=== PATIENT | male | born 1950 | race Caucasian/White ===

== ENCOUNTER → 2019-01-12 | Outpatient (CLI) | payer MEDICARE ==
--- NOTE | 2019-01-12 16:52 | Diagnostic Imaging Report ---
PATIENT HISTORY: PERSISTENT COUGH. TECHNIQUE: Two views of the chest. COMPARISON: None. FINDINGS: There are small bilateral pleural effusions, right greater than left, with associated airspace opacities. No pneumothorax is seen. The right-sided pacemaker leads appear to be in expected position. There is calcific atherosclerosis in the aorta. There are calcified left hilar lymph nodes as well as a calcified granuloma in the left lung. The heart is normal in size. No acute osseous abnormality is seen. IMPRESSION: 1. Small bilateral pleural effusions, right greater than left, with associated bibasilar airspace opacities, likely atelectasis. Dictated by: Dictated on workstation # [id number]
== END ==
LOC: RAD FS 16:35
PROVIDERS: ATTEND Nurse Practitioner
DX: J90 Pleural effusion, not elsewhere classified (principal)
CPT/HCPCS: 71046

== ENCOUNTER 2019-11-15 10:09 | Emergency (ER) | payer MEDICARE, OTHER ==
[~2019-11-15] VITALS: Ht 187.9 cm; Wt 113.6 kg
[2019-11-15] MEDS ORDERED: NEOM28.33 TP (10:49)
--- NOTE | 2019-11-15 10:50 | ED Integumentary General ---
General Chief Complaint: Skin/Wound Problems Stated Complaint: FALL Nursing Triage Note: Patient reports he tripped over some boxes this morning and fell backward against the television, scraping his right arm and causing extensive skin tears on his right bicep and a small skin tear on his right forearm. History of Present Illness Date Seen by Provider: Nov 15, 2019 Time Seen by Provider: 10:45 Initial Comments 69 yo male multiple chronic illnesses ESRD hemo followed for foot ulcer says has unsteady gait was looking out window, started to lean back, stepped back and tripped over boxes, fell causing skin tears to right upper arm as described above denies any other injury or concern Allergies and Home Medications Allergies Coded Allergies: No Known Drug Allergies (Unverified , 11/15/19) Home Medications Neomycin Rodríguez/Bacitrac Zn/Poly 28.3 Gm Oint...g., 28.3 GM TP DAILY Prescribed by: JEAN MAZARIEGOS on 11/15/19 1049 Patient Home Medication List Home Medication List Reviewed: Yes Review of Systems Review of Systems Constitutional: no symptoms reported EENTM: no symptoms reported Cardiovascular: no symptoms reported Gastrointestinal: no symptoms reported Genitourinary: no symptoms reported Musculoskeletal: other (abrasions skin tears right arm) Past Jaogzeo-Lanrfb-Tgesdt Hx Patient Social History Recent Foreign Travel: No Contact w/Someone Who Travel: No Recent Infectious Disease Expo: No Physical Exam Vital Signs Vital Signs - First Documented 11/15/19 10:28 Temp 36.5 Pulse 70 Resp 16 B/P (MAP) 124/94 (104) Pulse Ox 98 O2 Delivery Room Air Capillary Refill : Less Than 3 Seconds General Appearance: WD/WN, no apparent distress HEENT: PERRL/EOMI Neck: supple Cardiovascular: regular rate, rhythm Respiratory: lungs clear Gastrointestinal: non tender Extremities: other (has 10 x 10 cm skin tear right upper minor skin tear forearm ortho exam of RUE no suspicion of fx has FROM without pain etc) Procedures/Interventions nurse cleansed skin tears skin placed back in anatomic position neosporin non-stick dressing and wrap Progress/Results/Core Measures Results/Orders My Orders Orders - JEAN MAZARIEGOS MD Wound Dressing-Ed (11/15/19 10:29) Santos/Poly/Gina Topical Ointment (Neosporin (11/15/19 21:00) Vital Signs/I&O 11/15/19 11/15/19 10:28 11:18 Temp 36.5 Pulse 70 74 Resp 16 16 B/P (MAP) 124/94 (104) 138/89 Pulse Ox 98 94 O2 Delivery Room Air Room Air Blood Pressure Mean: 104 Departure Impression Primary Impression: Skin tear Disposition: HOME, SELF-CARE Condition: Stable Departure-Patient Inst. Decision time for Depature: 10:47 Referrals: KAMAR HAZELP-STILL WORKER HELPER (PCP) Primary Care Physician NO,LOCAL PHYSICIAN (Family) Primary Care Physician Patient Instructions: Skin Abrasions (DC) Add. Discharge Instructions: each day clean wound with soap and water pat dry, then apply antibiotic ointment non-stick dressing and a wrap Scripts Neomycin Rodríguez/Bacitrac Zn/Poly (Neosporin Ointment) 28.3 Gm Oint...g. 28.3 GM TP DAILY for 10 Days, #1 TUBE Prov: JEAN MAZARIEGOS MD 11/15/19 JEAN MAZARIEGOS MD Nov 15, 2019 10:50
[2019-11-15 11:18] VITALS: BP 138/89
[2019-11-15] MEDS ORDERED: NEO/POLY/BAC (NEOSPORIN) OINT 15 GM TUBE TOP SCH (21:00)
== END 2019-11-15 11:19 | disposition home or self-care (01) ==
LOC: EDUNIT# 10:09 → ER FS 10:10
DX: S51.811A Laceration without foreign body of right forearm, initial encounter (principal); S41.111A Laceration without foreign body of right upper arm, initial encounter; W01.0XXA Fall on same level from slipping, tripping and stumbling without subsequent striking against object, initial encounter
CPT/HCPCS: 99282

== ENCOUNTER 2020-07-28 18:02 | Emergency (ER) | payer OTHER ==
[~2020-07-28] VITALS: Ht 187.9 cm; Wt 113.6 kg
[~2020-07-28 18:02] MED LIST: NEOM28.33 TP
[2020-07-28] MEDS ORDERED: ONDANSETRON 4 MG/2 ML (SDV) Z0FRAN IVP ONE (18:30)
[2020-07-28] MEDS ORDERED: NS (IVPB) 250 ML IV ONE (18:49)
[2020-07-28] MEDS ORDERED: ACETAMINOPHEN 500 MG TAB (TYLENOL) PO ONE (19:00)
[2020-07-28 19:02] LABS: HEMATOCRIT 34 % (40-54); HEMOGLOBIN 11.1 G/DL (13.3-17.7); MEAN CORPUSCULAR HEMOGLOBIN 32 PG (25-34); MEAN CORPUSCULAR HGB CONC 32 G/DL (32-36); MEAN CORPUSCULAR VOLUME 98 FL (80-99); MEAN PLATELET VOLUME 10.2 FL (7.4-10.4); PLATELET COUNT 167 10^3/uL (130-400)
[2020-07-28 19:04] LABS: BASOPHILS # (AUTO) 0.1 10^3/uL (0.0-0.1); BASOPHILS % (AUTO) 1 % (0-10); EOSINOPHILS # (AUTO) 0.1 10^3/uL (0.0-0.3); EOSINOPHILS % (AUTO) 3 % (0-10); LYMPHOCYTES % (AUTO) 20 % (12-44); MONOCYTES # (AUTO) 0.8 X 10^3 (0.0-1.0); MONOCYTES % (AUTO) 16 % (0-12); NEUTROPHILS % (AUTO) 60 % (42-75)
--- NOTE | 2020-07-28 19:21 | ED GI ---
General Chief Complaint: Abdominal/GI Problems Stated Complaint: VOMITING,DIARRHEA,ALL OVER BODY PAIN Nursing Triage Note: Patient presents to the ED with c/o nausas, vomiting, weakness, and right arm swelling. He reports that he has had diarrhea and vomiting since Tuesday. He states he had dialysis today and his nausea became worse and he feels weak. He also reports that his right arm is swollen too. Sepsis Screen: No Definite Risk History of Present Illness Date Seen by Provider: Jul 28, 2020 Time Seen by Provider: 18:25 Initial Comments The patient is a 70-year-old male with a somewhat unclear medical history as he is a challenging historian and we do not have any prior history on him at this facility. At minimum, he does have a history of hypertension, hyperlipidemia, questionable coronary artery disease and heart failure (patient does not know), pacemaker in place, on warfarin for an unclear indication, insulin-dependent diabetes, end-stage renal disease on hemodialysis MWF and compliant. Last dialysis today. Patient presents for evaluation of 3 days of copious nonbloody vomiting and diarrhea. Patient states he has had about 10 episodes of watery loose stool each day over the past 3 days. He states he's had about 5 episodes of nonbloody vomiting each day over that interval. He reports feeling very generally weak and tired and states he has not been able to hold down any food or fluids. He denies associated fevers, hematemesis, hematochezia, melena, upper respiratory congestion/rhinorrhea, cough, shortness of breath or chest pain of any kind, focal abdominal pain of any kind (he admits to generalized abdominal cramping when his diarrhea is worse), flank pain, back pain, dysuria or hematuria (he still makes a little urine), recent unusual travel, unusual foods, sick contacts with similar symptoms, recent antibiotic use. Ervin has a secondary concern of minimal swelling of his right hand and wrist, atraumatic and without any associated pain, over the past few days. This is not bothering him very much but he states he wanted to mention it. He has not had this happen before. Patient is alert and pleasantly and appropriately interactive and in absolutely no acute distress upon initial assessment here in the emergency department. He moves all extremities equally. Vital signs are appropriate here. Allergies and Home Medications Allergies Coded Allergies: No Known Drug Allergies (Unverified , 11/15/19) Home Medications Neomycin Rodríguez/Bacitrac Zn/Poly 28.3 Gm Oint...g., 28.3 GM TP DAILY Prescribed by: JEAN MAZARIEGOS on 11/15/19 1049 Patient Home Medication List Home Medication List Reviewed: Yes Review of Systems Review of Systems Constitutional: see HPI All Other Systems Reviewed Negative Unless Noted: Yes (Negative excepted noted.) Past Njdiihd-Cgmlou-Fkhjkr Hx Past Med/Social Hx: Reviewed Nursing Past Med/Soc Hx Patient Social History Alcohol Use: Denies Use Recreational Drug Use: No Smoking Status: Never a Smoker 2nd Hand Smoke Exposure: No Recent Foreign Travel: No Contact w/Someone Who Travel: No Recent Infectious Disease Expo: No Recent Hopitalizations: No Physical Abuse: No Sexual Abuse: No Mistreated: No Fear: No Seasonal Allergies Seasonal Allergies: No Past Medical History Surgeries: Yes Pacemaker Respiratory: No Cardiac: No Neurological: No Genitourinary: Yes Dialysis Gastrointestinal: No Musculoskeletal: Yes (toes on right foot amputated) Amputee Endocrine: Yes Diabetes, Non-Insulin dep HEENT: No Cancer: No Psychosocial: No Integumentary: No Family Medical History Reviewed Nursing Family Hx Physical Exam Vital Signs Vital Signs - First Documented 07/28/20 18:05 Temp 36.7 Pulse 84 Resp 16 B/P (MAP) 145/75 (98) Pulse Ox 94 O2 Delivery Room Air Capillary Refill : Less Than 3 Seconds Height/Weight/BMI Height: '" Weight: lbs. oz. kg; 32.00 BMI Method: General Appearance: no apparent distress Exam Comments This is an elderly male appearing nontoxic and in no acute distress. Head is normocephalic and atraumatic. Neck is supple and nontender. Oropharynx is tacky. Lungs are clear to auscultation at all stations. There is a normal S1 and S2 without rubs or gallops and capillary refill is appropriate, less than 2 seconds globally. Abdomen is soft, nontender and nondistended. Skin is warm and dry without cyanosis, clubbing or edema. Psychiatrically, the patient demonstrates appropriate mood and affect and is alert. Neurologically, patient moves all extremities equally, is alert and oriented and no lateralizing deficits are grossly noted. Examination of the extremities reveals very mild swelling to the right hand without erythema and without tenderness. No discomfort with ranging of any joints of the bilateral upper or lower extremities. Bilateral upper and lower extremity is neurovascularly intact distally with strength 5 out of 5, sensation intact to light touch in all nerve distributions, peripheral pulses 2+, capillary refill less than 2 seconds, hands and feet warm and well-perfused. Focused Exam Lactate Level 07/28/20 18:58: Lactic Acid Level 1.51 Lactic Acid Level Laboratory Tests Test 07/28/20 18:58 Lactic Acid Level 1.51 MMOL/L (0.50-2.00) Progress/Results/Core Measures Results/Orders Lab Results Laboratory Tests Test 07/28/20 18:15 07/28/20 18:58 Range/Units White Blood Count 5.0 4.3-11.0 10^3/uL Red Blood Count 3.51 L 4.35-5.85 10^6/uL Hemoglobin 11.1 L 13.3-17.7 G/DL Hematocrit 34 L 40-54 % Mean Corpuscular Volume 98 80-99 FL Mean Corpuscular Hemoglobin 32 25-34 PG Mean Corpuscular Hemoglobin Concent 32 32-36 G/DL Red Cell Distribution Width 14.3 10.0-14.5 % Platelet Count 167 130-400 10^3/uL Mean Platelet Volume 10.2 7.4-10.4 FL Neutrophils (%) (Auto) 60 42-75 % Lymphocytes (%) (Auto) 20 12-44 % Monocytes (%) (Auto) 16 H 0-12 % Eosinophils (%) (Auto) 3 0-10 % Basophils (%) (Auto) 1 0-10 % Neutrophils # (Auto) 3.0 1.8-7.8 X 10^3 Lymphocytes # (Auto) 1.0 1.0-4.0 X 10^3 Monocytes # (Auto) 0.8 0.0-1.0 X 10^3 Eosinophils # (Auto) 0.1 0.0-0.3 10^3/uL Basophils # (Auto) 0.1 0.0-0.1 10^3/uL Prothrombin Time 15.6 H 12.2-14.7 SEC INR Comment 1.2 0.8-1.4 Activated Partial Thromboplast Time 36 H 24-35 SEC Sodium Level 137 135-145 MMOL/L Potassium Level 3.3 L 3.6-5.0 MMOL/L Chloride Level 91 L 98-107 MMOL/L Carbon Dioxide Level 34 H 21-32 MMOL/L Anion Gap 12 5-14 MMOL/L Blood Urea Nitrogen 12 7-18 MG/DL Creatinine 3.33 H 0.60-1.30 MG/DL Estimat Glomerular Filtration Rate 18 BUN/Creatinine Ratio 4 Glucose Level 140 H 70-105 MG/DL Calcium Level 7.9 L 8.5-10.1 MG/DL Corrected Calcium 8.4 L 8.5-10.1 MG/DL Magnesium Level 1.9 1.6-2.4 MG/DL Total Bilirubin 1.0 0.1-1.0 MG/DL Aspartate Amino Transf (AST/SGOT) 17 5-34 U/L Alanine Aminotransferase (ALT/SGPT) 5 0-55 U/L Alkaline Phosphatase 254 H 40-136 U/L Troponin I < 0.30 <0.30 NG/ML Total Protein 7.8 6.4-8.2 GM/DL Albumin 3.4 3.2-4.5 GM/DL Lipase 10 8-78 U/L Lactic Acid Level 1.51 0.50-2.00 MMOL/L My Orders Orders - KIP WOOD MD Ondansetron Injection (Zofran Injectio (07/28/20 18:30) Cbc With Automated Diff (07/28/20 18:49) Comprehensive Metabolic Panel (07/28/20 18:49) Lipase (07/28/20 18:49) Lactic Acid Analyzer (07/28/20 18:49) Troponin I Fs (07/28/20 18:49) Ekg Tracing (07/28/20 18:49) Magnesium (07/28/20 18:49) Ed Iv/Invasive Line Start (07/28/20 18:49) Ns (Ivpb) (Sodium Chloride 0.9%) (07/28/20 18:49) Acetaminophen Tablet (Tylenol Tablet) (07/28/20 19:00) Protime With Inr (07/28/20 19:22) Partial Thromboplastin Time (07/28/20 19:22) Ceftriaxone For Iv Use (Rocephin For I (07/28/20 20:00) Ct Abdomen/Pelvis Wo (07/28/20 20:37) Medications Given in ED Current Medications Medications Dose Ordered Sig/Jose Alejandro Route Start Time Stop Time Status Last Admin Dose Admin Acetaminophen 1,000 mg ONCE ONCE PO 07/28/20 19:00 07/28/20 19:01 DC 07/28/20 18:59 1,000 MG Ondansetron HCl 4 mg ONCE ONCE IVP 07/28/20 18:30 07/28/20 18:31 DC 07/28/20 18:36 4 MG Sodium Chloride 250 ml @ 0 mls/hr Q0M ONCE IV 07/28/20 18:49 07/28/20 18:52 DC 07/28/20 18:59 0 MLS/HR Vital Signs/I&O 07/28/20 07/28/20 18:05 20:13 Temp 36.7 Pulse 84 69 Resp 16 16 B/P (MAP) 145/75 (98) 124/56 (78) Pulse Ox 94 97 O2 Delivery Room Air Room Air Blood Pressure Mean: 98 Progress Progress Note : Time: 20:06 Progress Note Elderly diabetic male with end-stage renal disease, compliant with dialysis, who presents with several days of intractable vomiting and diarrhea. Has not been able to hold down food or fluids at home. We'll check labs and EKG and give a small crystalloid bolus and some antinausea medication and will then reevaluate. Anticipate the need for admission, which will need to be at the [facility] in [place] as the patient's insurance mandates that. 2000: Patient is resting comfortably in no acute distress upon reassessment. No huge derangements in counts or chemistries are seen. EKG with a nonischemic paced rhythm. Patient has received a small fluid bolus and states he is feeling better. Given his baseline very fragile health and intractable vomiting and diarrhea, will require admission. We'll transfer to the [facility] per his insurance. Suggest that venous Doppler ultrasound of the right upper extremity be completed at the receiving facility to evaluate for VTE. Suggest that stool studies be obtained at the receiving facility as well (we do not have the ability to process stool studies here at this freestanding facility). Graciously accepted i n transfer to [facility] for admission by Dr. Scott, who also requests noncontrast CT A/P be completed prior to transfer. This was done and is unremarkable aside from RUQ findings (no RUQ TTP and no LFT derangements) and ascites, likely due to ESRD status. Comment Ventricularly paced, irregular rhythm, rate 70s, no acute ST elevation or depression, EP interp Diagnostic Imaging Comments Date of Exam:07/28/20 CT ABDOMEN/PELVIS WO PROCEDURE: CT abdomen and pelvis without contrast, 07/28/2020. TECHNIQUE: Multiple contiguous axial images were obtained through the abdomen and pelvis without the use of intravenous contrast. Auto Exposure Controls were utilized during the CT exam to meet ALARA standards for radiation dose reduction. INDICATION: Nausea, vomiting, renal failure. COMPARISON: None. FINDINGS: Calcified granuloma seen in the visualized lung bases. There is a rounded density in the posterior right lung base perhaps rounded atelectasis. Follow-up recommended to assure complete resolution and exclude mass. More patchy atelectasis seen at the left lung base. There are small bilateral pleural effusions. Calcified lymph nodes seen throughout the mediastinum and left hilum. Within the abdomen and pelvis there is moderate ascites. The unopacified abdominal viscera limited in evaluation. Evidence of old granulomatous disease throughout the spleen and portions of the liver. There are multiple hyperdensities within the gallbladder. Acute cholecystitis is not excluded. Pancreas is unremarkable. Adrenal glands normal. Kidneys markedly atrophied. Diffuse atherosclerotic disease is seen. There is wall thickening of the urinary bladder likely due to under distention versus cystitis, correlate clinically. There is no acute osseous abnormality with diffuse degenerative disease throughout the spine. IMPRESSION: 1. Moderate ascites. 2. Abnormality within the gallbladder, likely multiple stones. If there is concern for acute cholecystitis, sonography could better characterize as clinically indicated. 3. Other incidental findings as above. Dictated on workstation # [id number] Departure Impression Primary Impression: Acute infectious diarrhea Additional Impression: Intractable vomiting Qualified Codes: R11.2 - Nausea with vomiting, unspecified Disposition: XFER SHT-TRM HOSP Condition: Stable Transfer Transfer Progress Notes Pt must transfer to [facility] as that is where he gets his care, and he [place]. Departure-Patient Inst. Referrals: KAMAR HAZEL-RECRUITING SCHEDULER (PCP) Primary Care Physician NO,LOCAL PHYSICIAN (Family) Primary Care Physician KIP WOOD MD Jul 28, 2020 19:21
[2020-07-28 19:22] LABS: CARBON DIOXIDE 34 MMOL/L (21-32); CHLORIDE 91 MMOL/L (98-107); POTASSIUM 3.3 MMOL/L (3.6-5.0); SODIUM 137 MMOL/L (135-145)
[2020-07-28 19:23] LABS: ALANINE AMINOTRANSFERASE 5 U/L (0-55); ALBUMIN 3.4 GM/DL (3.2-4.5); ALKALINE PHOSPHATASE 254 U/L (40-136); BUN/CREATININE RATIO 4; CALCIUM 7.9 MG/DL (8.5-10.1); CREATININE SERUM 3.33 MG/DL (0.60-1.30); GFR ESTIMATED 18; GLUCOSE 140 MG/DL (70-105); LIPASE 10 U/L (8-78); MAGNESIUM 1.9 MG/DL (1.6-2.4); TOTAL PROTEIN 7.8 GM/DL (6.4-8.2)
[2020-07-28 19:39] LABS: INR 1.2 (0.8-1.4); PROTHROMBIN TIME PATIENT 15.6 SEC (12.2-14.7)
[2020-07-28] MEDS ORDERED: cefTRIAXone FOR IV USE 1,000 MG in WATER (STERILE) FOR INJECTION 10 ML IV ONE (20:00)
[2020-07-28 20:13] VITALS: BP 124/56
--- NOTE | 2020-07-28 21:32 | Diagnostic Imaging Report ---
PROCEDURE: CT abdomen and pelvis without contrast, 07/28/2020. TECHNIQUE: Multiple contiguous axial images were obtained through the abdomen and pelvis without the use of intravenous contrast. Auto Exposure Controls were utilized during the CT exam to meet ALARA standards for radiation dose reduction. INDICATION: Nausea, vomiting, renal failure. COMPARISON: None. FINDINGS: Calcified granuloma seen in the visualized lung bases. There is a rounded density in the posterior right lung base perhaps rounded atelectasis. Follow-up recommended to assure complete resolution and exclude mass. More patchy atelectasis seen at the left lung base. There are small bilateral pleural effusions. Calcified lymph nodes seen throughout the mediastinum and left hilum. Within the abdomen and pelvis there is moderate ascites. The unopacified abdominal viscera limited in evaluation. Evidence of old granulomatous disease throughout the spleen and portions of the liver. There are multiple hyperdensities within the gallbladder. Acute cholecystitis is not excluded. Pancreas is unremarkable. Adrenal glands normal. Kidneys markedly atrophied. Diffuse atherosclerotic disease is seen. There is wall thickening of the urinary bladder likely due to under distention versus cystitis, correlate clinically. There is no acute osseous abnormality with diffuse degenerative disease throughout the spine. IMPRESSION: 1. Moderate ascites. 2. Abnormality within the gallbladder, likely multiple stones. If there is concern for acute cholecystitis, sonography could better characterize as clinically indicated. 3. Other incidental findings as above. Dictated by: Dictated on workstation # [id number]
[2020-07-28 21:45] VITALS: BP 138/76
== END 2020-07-28 22:03 | disposition short-term general hospital (02) ==
LOC: EDUNIT# 18:02 → ER FS 18:04
DX: A09 Infectious gastroenteritis and colitis, unspecified (principal); R11.10 Vomiting, unspecified; Z95.0 Presence of cardiac pacemaker; Z89.421 Acquired absence of other right toe(s)
CPT/HCPCS: 36415; 74176; 80053; 83605; 83690; 83735; 84484; 85025; 85610; 85730; 93005

== ENCOUNTER 2020-09-04 17:21 | Emergency (ER) | payer MEDICARE, OTHER ==
[~2020-09-04] VITALS: Ht 185 cm; Wt 113.0 kg
[2020-09-04 17:53] LABS: HEMATOCRIT 31 % (40-54); HEMOGLOBIN 10.4 G/DL (13.3-17.7); MEAN CORPUSCULAR HEMOGLOBIN 32 PG (25-34); MEAN CORPUSCULAR HGB CONC 33 G/DL (32-36); MEAN CORPUSCULAR VOLUME 95 FL (80-99); MEAN PLATELET VOLUME 9.9 FL (7.4-10.4); PLATELET COUNT 198 10^3/uL (130-400); WHITE BLOOD COUNT 5.1 10^3/uL (4.3-11.0)
[2020-09-04 17:54] LABS: BASOPHILS # (AUTO) 0.1 10^3/uL (0.0-0.1); BASOPHILS % (AUTO) 1 % (0-10); EOSINOPHILS # (AUTO) 0.2 10^3/uL (0.0-0.3); EOSINOPHILS % (AUTO) 4 % (0-10); LYMPHOCYTES # (AUTO) 0.9 X 10^3 (1.0-4.0); LYMPHOCYTES % (AUTO) 18 % (12-44); MONOCYTES % (AUTO) 20 % (0-12); NEUTROPHILS # (AUTO) 2.9 X 10^3 (1.8-7.8); NEUTROPHILS % (AUTO) 57 % (42-75)
--- NOTE | 2020-09-04 17:58 | ED Upper Extremity ---
General Chief Complaint: Upper Extremity Stated Complaint: RT ARM SWELLING Nursing Triage Note: ARRIVED VIA AMB TO ROOM 06 WITH COMPLAINTS OF RIGHT ARM SWELLING SINCE Jul WHEN A IV WAS PLACED HERE ACCORDING TO HIM. STATES IT IS NOT GETTING BETTER AND WAS TOLD BY HIS HOME HEALTH NURSE TO COME TO THE ER. PT IS ON DIALYSIS AND IS SCHEDULED ON . Nursing Sepsis Screen: No Definite Risk History of Present Illness Date Seen by Provider: Sep 04, 2020 Time Seen by Provider: 17:45 Initial Comments 70-year-old male presents with right forearm swelling for the past 1 month. States it started after an IV was started in his right forearm. Developed shortly thereafter, was noted during that subsequent hospitalization. Today was told by home health nurse he needed to go to the ER. Patient denies any increased pain or skin color changes. States the swelling just hasn't gone away. Denies any numbness or tingling or weakness of any extremity. Denies any swelling of his arm on the same side. Denies any recent illness, fever chills, cough or shortness of air. Denies any chest pain. Past medical history significant for chronic kidney disease and is on dialysis Tuesday and Tuesday. His shunt is located in his left forearm. He does not have any new swelling of the left upper or lower extremities. Patient is on a blood thinner Allergies and Home Medications Allergies Coded Allergies: No Known Drug Allergies (Unverified , 11/15/19) Home Medications Neomycin Rodríguez/Bacitrac Zn/Poly 28.3 Gm Oint...g., 28.3 GM TP DAILY Prescribed by: JEAN MAZARIEGOS on 11/15/19 1049 Patient Home Medication List Home Medication List Reviewed: Yes Review of Systems Constitutional: No dizziness, No fever, No malaise, No weakness Respiratory: No cough, No short of breath, No stridor, No wheezing Cardiovascular: No chest pain; edema (chronic lower extremity edema and swelling of the right forearm as stated in history of present illness); No syncope Gastrointestinal: No abdominal pain, No nausea, No vomiting Musculoskeletal: No back pain, No joint pain, No joint swelling Skin: No lesions; other (swelling of right forearm) Past Fjdwadh-Wzdxkr-Lvszck Hx Past Med/Social Hx: Reviewed Nursing Past Med/Soc Hx Patient Social History Alcohol Use: Occasionally Uses Recreational Drug Use: No Smoking Status: Never a Smoker 2nd Hand Smoke Exposure: No Recent Foreign Travel: No Contact w/Someone Who Travel: No Recent Infectious Disease Expo: No Recent Hopitalizations: No Seasonal Allergies Seasonal Allergies: No Past Medical History Surgeries: Yes Pacemaker Respiratory: No Cardiac: No Neurological: No Genitourinary: Yes Dialysis Gastrointestinal: No Musculoskeletal: Yes (toes on right foot amputated) Amputee Endocrine: Yes Diabetes, Non-Insulin dep HEENT: No Cancer: No Psychosocial: No Integumentary: No Physical Exam Vital Signs Vital Signs - First Documented 09/04/20 17:25 Temp 37.0 Pulse 72 Resp 16 B/P (MAP) 156/77 (103) Pulse Ox 97 O2 Delivery Room Air Capillary Refill : Less Than 3 Seconds Height, Weight, BMI Height: '" Weight: lbs. oz. kg; 33.00 BMI Method: General Appearance: WD/WN, no apparent distress Neck: non-tender, full range of motion Cardiovascular: regular rate, rhythm, no gallop, no JVD, no murmur, other (chronic lower extremity edema) Respiratory: chest non-tender, lungs clear, normal breath sounds, no respiratory distress, no accessory muscle use Gastrointestinal: non tender, soft Elbow/Forearm: no evidence of injury, normal ROM, Right, swelling (moderate swelling right forearm, dorsum. Extensor muscle bundle. No swelling of full or her Flexeril muscle bundle.) Wrist: Yes normal inspection, Yes non-tender, Yes no evidence of injury, Yes normal ROM Hand: normal inspection, non-tender, no evidence of injury, normal ROM, Right Neurologic/Psychiatric: no motor/sensory deficits, alert, normal mood/affect Skin: normal color, warm/dry Progress/Results/Core Measures Results/Orders Lab Results Laboratory Tests Test 09/04/20 17:40 Range/Units White Blood Count 5.1 4.3-11.0 10^3/uL Red Blood Count 3.30 L 4.35-5.85 10^6/uL Hemoglobin 10.4 L 13.3-17.7 G/DL Hematocrit 31 L 40-54 % Mean Corpuscular Volume 95 80-99 FL Mean Corpuscular Hemoglobin 32 25-34 PG Mean Corpuscular Hemoglobin Concent 33 32-36 G/DL Red Cell Distribution Width 14.1 10.0-14.5 % Platelet Count 198 130-400 10^3/uL Mean Platelet Volume 9.9 7.4-10.4 FL Immature Granulocyte % (Auto) 0 % Neutrophils (%) (Auto) 57 42-75 % Lymphocytes (%) (Auto) 18 12-44 % Monocytes (%) (Auto) 20 H 0-12 % Eosinophils (%) (Auto) 4 0-10 % Basophils (%) (Auto) 1 0-10 % Neutrophils # (Auto) 2.9 1.8-7.8 X 10^3 Lymphocytes # (Auto) 0.9 L 1.0-4.0 X 10^3 Monocytes # (Auto) 1.0 0.0-1.0 X 10^3 Eosinophils # (Auto) 0.2 0.0-0.3 10^3/uL Basophils # (Auto) 0.1 0.0-0.1 10^3/uL Immature Granulocyte # (Auto) 0.0 0.0-0.1 10^3/uL Sodium Level 137 135-145 MMOL/L Potassium Level 3.5 L 3.6-5.0 MMOL/L Chloride Level 94 L 98-107 MMOL/L Carbon Dioxide Level 31 21-32 MMOL/L Anion Gap 12 5-14 MMOL/L Blood Urea Nitrogen 11 7-18 MG/DL Creatinine 3.95 H 0.60-1.30 MG/DL Estimat Glomerular Filtration Rate 15 BUN/Creatinine Ratio 3 Glucose Level 125 H 70-105 MG/DL Calcium Level 7.5 L 8.5-10.1 MG/DL My Orders Orders - HAYLEE MADERA DO Cbc With Automated Diff (09/04/20 17:49) Basic Metabolic Panel (09/04/20 17:49) Manual Differential (09/04/20 17:40) Vital Signs/I&O 09/04/20 17:25 Temp 37.0 Pulse 72 Resp 16 B/P (MAP) 156/77 (103) Pulse Ox 97 O2 Delivery Room Air 2 Blood Pressure Mean: 103 Progress Progress Note : Progress Note Patient examination supportive of hematoma of his right dorsal forearm/extensor muscle bundle secondary to IV stick one month ago. Reassurance given to the patient, scheduled for outpatient ultrasound tomorrow in [place] for 2 reasons 1 do not have diamond powder technician available at this ER at this hour. Number 2 patient will be in [place] tomorrow for dialysis and will be convenient for him. Results to go to his doctor at the [facility] in [place]....Dr Reeves Departure Impression Primary Impression: Traumatic hematoma of right forearm Qualified Codes: S50.11XD - Contusion of right forearm, subsequent encounter Disposition: HOME, SELF-CARE Condition: Stable Departure-Patient Inst. Decision time for Depature: 18:07 Referrals: KAMAR HAZEL-CARMINE (PCP) Primary Care Physician NO,LOCAL PHYSICIAN (Family) Primary Care Physician Patient Instructions: Contusion (DC) Add. Discharge Instructions: You will get a call to schedule your ultrasound of your right arm tomorrow. Your results of this test should be sent to your provider at the [facility] in [place], Dr Reeves Continue your current medications as prescribed. Call Dr Reeves for any further questions regarding your Right forearm hematoma/ swelling All discharge instructions reviewed with patient and/or family. Voiced understanding. HAYLEE MADERA DO Sep 04, 2020 17:58
[2020-09-04 18:03] LABS: POTASSIUM 3.5 MMOL/L (3.6-5.0)
[2020-09-04 18:04] LABS: CALCIUM 7.5 MG/DL (8.5-10.1); CREATININE SERUM 3.95 MG/DL (0.60-1.30)
--- NOTE | 2020-09-04 18:14 | NUR ---
OUT PT ORDER FORM FAXED TO REGISTRATION/SCHEDULING AND ED REGISTRATION.
--- NOTE | 2020-09-04 18:20 | NUR ---
CONTACTED DAUGHTER BY PHONE ET EXPLAINED HIS OUTPT ORDER FOR A ULTRASOUND. ANNIKA VERBALIZED UNDERSTANDING.
[2020-09-04 18:25] VITALS: BP 151/74
[2020-09-04 18:38] LABS: EOSINOPHILS % (MANUAL) 3 %; LYMPHOCYTES % (MANUAL) 17 %; MONOCYTES % (MANUAL) 16 %; NEUTROPHILS % (MANUAL) 64 %
== END 2020-09-04 18:25 | disposition home or self-care (01) ==
LOC: EDUNIT# 17:21 → ER FS 17:22
DX: S50.11XA Contusion of right forearm, initial encounter (principal); N18.9 Chronic kidney disease, unspecified; Z95.0 Presence of cardiac pacemaker; X58.XXXA Exposure to other specified factors, initial encounter
CPT/HCPCS: 36415; 80048; 85007; 85027

== ENCOUNTER → 2020-09-08 | Outpatient (CLI) | payer MEDICARE, OTHER ==
--- NOTE | 2020-09-08 17:54 | Diagnostic Imaging Report ---
Exam: Right upper extremity venous Doppler ultrasound. Date: September 08, 2020. Indication: 70-year-old male, right upper extremity swelling. Comparison: None. Findings: In the right internal jugular vein and right subclavian vein are patent in their visualized extent. The right axial, brachial, and basilic veins are patent. The right radial and ulnar veins are patent. The right cephalic vein is patent. Impression: 1. Negative for right upper extremity deep venous thrombosis. Dictated by: Dictated on workstation # [id number]
== END ==
LOC: RAD 13:41
PROVIDERS: ATTEND Nurse Practitioner
DX: R60.0 Localized edema (principal); M79.601 Pain in right arm